=== PATIENT | female | born 1985 | race Caucasian/White ===

== ENCOUNTER 2017-11-10 16:03 | Emergency (ER) | payer OTHER ==
--- NOTE | 2017-11-10 16:11 | PDOC ---
Rapid Medical Evaluation Time Seen by Provider: 11/10/17 16:09 Medical Evaluation: Allergies Allergy/AdvReac Type Severity Reaction Status Date / Time No Known Allergies Allergy Verified 08/28/17 01:20 11/10/17 16:09 The patient presents with a chief complaint of: left sided chest pain radiating left neck, dull presently I have performed a brief in-person evaluation of this patient. Pertinent physical exam findings: VSS I have ordered the following: ekg done in triage The patient will proceed to the ED for further evaluation. Discharge Disposition - Diagnosis Chest pain - Referrals - Patient Instructions - Post Discharge Activity
[2017-11-10 16:12] VITALS: BMI 24.2
[2017-11-10 18:05] LABS: URINE APPEARANCE SLCLOUDY; URINE BILIRUBIN NEGATIVE (NEGATIVE); URINE BLOOD NEGATIVE (NEGATIVE); URINE COLOR LTYELLOW; URINE GLUCOSE (UA) NEGATIVE (NEGATIVE); URINE KETONE NEGATIVE (NEGATIVE); URINE LEUK ESTERASE TRACE (NEGATIVE); URINE NITRITE NEGATIVE (NEGATIVE); URINE PROTEIN NEGATIVE (NEGATIVE); URINE UROBILINOGEN NEGATIVE mg/dL (0.2-1.0)
[2017-11-10 18:07] LABS: URINE MUCUS RARE; URINE RBC <1 /hpf (0-3); URINE WBC 1 /hpf (3-5)
[2017-11-10 18:20] LABS: MEAN PLT VOLUME 8.3 fl (7.5-11.1); RDW 12.5 % (11.6-15.6); WHITE BLOOD COUNT 9.1 K/mm3 (4.0-10.0)
[2017-11-10 18:22] LABS: BASOPHIL 0.9 % (0-2.0); MCH 29.7 pg (25.7-33.7); MCHC 34.2 g/dl (32.0-36.0); MEAN CELL VOLUME 86.9 fl (80-96); PLATELET COUNT 315 K/MM3 (134-434)
--- NOTE | 2017-11-10 18:39 | PDOC ---
History of Present Illness - General Chief Complaint: Chest Pain Stated Complaint: CHEST PAIN Time Seen by Provider: 11/10/17 16:09 - History of Present Illness Initial Comments: 11/10/17 18:36 "The patient is a 32 year old female with a significant PMH of panic attacks who presents to the emergency department with 2 weeks of dull chest pain and 1 day of sharp chest pain. The patient reports feeling intermittent chest pain for the past 2 weeks which is bilateral and dull in nature. The pain was non- pleuritic and non-exertional. Pt attributed it to her anxiety. However, today she reports feeling a sudden onset of sharp right sided chest pain which radiated up to her ear. She reports that this sharp chest pain lasted about 3 seconds and resolved completely. Pt currently denies any symptoms whatsoever. Denies AGUAYO/N/V. Denies neck pain. Denies F/C. Denies leg swelling. Denies OCP use. Denies recent travel/immobilization. The patient denies shortness of breath, headache and dizziness. Denies fever, chills, nausea, vomit, diarrhea and constipation. Denies dysuria, frequency, urgency and hematuria. Allergies: NKA Past surgical history: None reported. Social history: Current everyday smoker (~5 cigs/day). No reported alcohol or drug use. PCP: None reported. " Past History - Past Medical History Allergies/Adverse Reactions: Allergies Allergy/AdvReac Type Severity Reaction Status Date / Time No Known Allergies Allergy Verified 11/10/17 16:09 Home Medications: Ambulatory Orders NK [No Known Home Medication] 11/10/17 COPD: No - Immunization History Immunization Up to Date: Yes - Suicide/Smoking/Psychosocial Hx Smoking History: Never smoked Have you smoked in the past 12 months: Yes Number of Cigarettes Smoked Daily: 5 Information on smoking cessation initiated: No Hx Alcohol Use: No Drug/Substance Use Hx: No Review of Systems - Review of Systems Comments:: 11/10/17 18:38 "GENERAL/CONSTITUTIONAL: No fever or chills. No weakness. HEAD, EYES, EARS, NOSE AND THROAT: No change in vision. No ear pain or discharge. No sore throat. CARDIOVASCULAR: (+) Intermittent dull chest pain. (+) Sharp chest pain. No shortness of breath. RESPIRATORY: No cough, wheezing, or hemoptysis. GASTROINTESTINAL: No nausea, vomiting, diarrhea or constipation. GENITOURINARY: No dysuria, frequency, or change in urination. MUSCULOSKELETAL: No joint or muscle swelling or pain. No neck or back pain. SKIN: No rash NEUROLOGIC: No headache, vertigo, loss of consciousness, or change in strength/ sensation. ENDOCRINE: No increased thirst. No abnormal weight change. HEMATOLOGIC/LYMPHATIC: No anemia, easy bleeding, or history of blood clots. ALLERGIC/IMMUNOLOGIC: No hives or skin allergy. " *Physical Exam - Vital Signs Last Vital Signs Temp Pulse Resp BP Pulse Ox 98.3 F 86 20 148/88 100 11/10/17 16:05 11/10/17 16:05 11/10/17 16:05 11/10/17 16:05 11/10/17 16:05 - Physical Exam Comments: 11/10/17 18:38 "GENERAL: Awake, alert, and fully oriented, in no acute distress HEAD: No signs of trauma EYES: PERRLA, EOMI, sclera anicteric, conjunctiva clear ENT: Auricles normal inspection, hearing grossly normal, nares patent, oropharynx clear without exudates. Moist mucosa NECK: Nontender, no stepoffs, Normal ROM, supple, no lymphadenopathy, JVD, or masses LUNGS: Breath sounds equal, clear to auscultation bilaterally. No wheezes, and no crackles HEART: Regular rate and rhythm, normal S1 and S2, no murmurs, rubs or gallops ABDOMEN: Soft, nontender, normoactive bowel sounds. No guarding, no rebound. No masses EXTREMITIES: Normal range of motion, no edema. No clubbing or cyanosis. No cords, erythema, or tenderness NEUROLOGICAL: Cranial nerves II through XII intact. 5/5 strength and sensation in all extremities, Normal speech, normal gait SKIN: Warm, Dry, normal turgor, no rashes or lesions noted. " Heart Score/ECG Review - History History: Slightly suspicious - Electrocardiogram EKG: Normal - Age Age: </= 45 - Risk Factors Risk Factors Heart Score: Yes Smoking History Based on the list above the patient has:: 1-2 risk factors - Troponin Troponin: </= normal limit - Score Heart Score - Total: 1 - ECG Impressions Comment:: 11/10/17 18:38 NSR, no LOC/STDs, no TWIs, axis wnl, intervals wnl ED Treatment Course - LABORATORY CBC & Chemistry Diagram: 11/10/17 18:10 11/10/17 18:10 - ADDITIONAL ORDERS Additional order review: Laboratory Results 11/10/17 18:00 Urine Color Ltyellow Urine Appearance Slcloudy Urine pH 7.0 Ur Specific [place] 1.009 Urine Protein Negative Urine Glucose (UA) Negative Urine Ketones Negative Urine Blood Negative Urine Nitrite Negative Urine Bilirubin Negative Urine Urobilinogen Negative Urine WBC (Auto) 1 Urine RBC (Auto) <1 Ur Epithelial Cells Rare Urine Mucus Rare Urine HCG, Qual Negative 11/10/17 18:10 RBC 4.83 MCV 86.9 MCHC 34.2 RDW 12.5 MPV 8.3 Neutrophils % 69.0 Lymphocytes % 19.4 D Monocytes % 7.7 Eosinophils % 3.0 Basophils % 0.9 - RADIOLOGY Radiology Studies Ordered: Category Date Time Status CHEST PA & LAT [RAD] Stat Radiology 11/10/17 17:42 Taken Medical Decision Making - Medical Decision Making 11/10/17 18:38 32 F with intermittent dull bilateral chest pain x 2 weeks with one episode of sharp shooting chest pain today lasting 3 seconds. Pain is very atypical in nature. EKG with no ischemic changes, making ACS unlikely. Pt has no PE risk factors, no s/s of DVT on exam, normal vitals. PERC score is 0. - Labs, trop - CXR 11/10/17 19:32 CXR clear. Pt signed out to oncoming attending, pending chemistries and troponin. *DC/Admit/Observation/Transfer Diagnosis at time of Disposition: Chest pain - Referrals Referrals: Yovany Robles MD [Staff Physician] - - Patient Instructions Printed Discharge Instructions: DI for Atypical Chest Pain Additional Instructions: Call the above number to make an appointment with a poultry farm laborer within 1 week. If you experience persistent or worsening chest pain, shortness of breath, or any other concerning symptoms, return to the ER immediately. - Post Discharge Activity
[2017-11-10 19:57] LABS: ALBUMIN 4.2 g/dl (3.4-5.0); ALK PHOS 65 U/L (45-117); ANION GAP 8 (8-16); BILIRUBIN,TOTAL 0.4 mg/dL (0.2-1.0); CALCIUM 8.7 mg/dL (8.5-10.1); CO2 26 mmol/L (21-32); CREATININE 0.6 mg/dL (0.55-1.02); GLUCOSE,RANDOM 61 mg/dL (74-106); SGOT/AST 6 U/L (15-37); SGPT/ALT 22 U/L (12-78); TOT PROT 7.6 g/dl (6.4-8.2)
[2017-11-10 19:58] LABS: CPK 91 IU/L (26-192); TROPONIN I < 0.02 ng/ml (0.00-0.05)
--- NOTE | 2017-11-10 20:01 | PDOC ---
*Physical Exam - Vital Signs Last Vital Signs Temp Pulse Resp BP Pulse Ox 98.3 F 86 20 148/88 100 11/10/17 16:05 11/10/17 16:05 11/10/17 16:05 11/10/17 16:05 11/10/17 16:05 ED Treatment Course - LABORATORY CBC & Chemistry Diagram: 11/10/17 18:10 11/10/17 18:10 - ADDITIONAL ORDERS Additional order review: Laboratory Results 11/10/17 11/10/17 11/10/17 18:10 18:10 18:00 Sodium 140 Potassium 4.1 Chloride 106 Carbon Dioxide 26 Anion Gap 8 BUN 15 Creatinine 0.6 Creat Clearance w eGFR > 60 Random Glucose 61 L D Calcium 8.7 Total Bilirubin 0.4 D AST 6 L ALT 22 D Alkaline Phosphatase 65 Creatine Kinase 91 Troponin I < 0.02 Total Protein 7.6 Albumin 4.2 Urine Color Ltyellow Urine Appearance Slcloudy Urine pH 7.0 Ur Specific [place] 1.009 Urine Protein Negative Urine Glucose (UA) Negative Urine Ketones Negative Urine Blood Negative Urine Nitrite Negative Urine Bilirubin Negative Urine Urobilinogen Negative Urine WBC (Auto) 1 Urine RBC (Auto) <1 Ur Epithelial Cells Rare Urine Mucus Rare Urine HCG, Qual Negative 11/10/17 18:10 RBC 4.83 MCV 86.9 MCHC 34.2 RDW 12.5 MPV 8.3 Neutrophils % 69.0 Lymphocytes % 19.4 D Monocytes % 7.7 Eosinophils % 3.0 Basophils % 0.9 *DC/Admit/Observation/Transfer Diagnosis at time of Disposition: Chest pain - Discharge Dispostion Disposition: HOME Condition at time of disposition: Stable Admit: No - Referrals Referrals: Yovany Robles MD [Staff Physician] - - Patient Instructions Printed Discharge Instructions: DI for Atypical Chest Pain Additional Instructions: Call the above number to make an appointment with a vending machine servicer within 1 week. If you experience persistent or worsening chest pain, shortness of breath, or any other concerning symptoms, return to the ER immediately. - Post Discharge Activity
[2017-11-10 20:08] VITALS: BP 148/78; PULSE 84; TEMP 98.6
[2017-11-10 20:42] LABS: URINE LEUK ESTERASE TRACE (NEGATIVE)
--- NOTE | 2017-11-11 11:33 | EKG ---
Test Reason : Blood Pressure : / mmHG Vent. Rate : 088 BPM Atrial Rate : 088 BPM P-R Int : 144 ms QRS Dur : 086 ms QT Int : 362 ms P-R-T Axes : 067 065 045 degrees QTc Int : 438 ms NORMAL SINUS RHYTHM WITH SINUS ARRHYTHMIA NONSPECIFIC ST AND T WAVE ABNORMALITY ABNORMAL ECG NO PREVIOUS ECGS AVAILABLE Confirmed by CAROLINE GIRON MD ([id number]) on 11/11/2017 11:33:33 AM Referred By: Confirmed By:CAROLINE GIRON MD
== END 2017-11-10 20:08 | disposition home or self-care (01) ==
LOC: JER 16:03
DX: R07.89 Other chest pain (principal); F41.0 Panic disorder [episodic paroxysmal anxiety]
CPT/HCPCS: 36415; 71020-TC; 80053; 81003; 81015; 82550; 84484; 84703; 85025; 93005; 93010; 99282-25

== ENCOUNTER 2021-08-15 12:28 | Emergency (ER) | payer SELFPAY ==
[2021-08-15 12:51] VITALS: PULSE 100; TEMP 99; BMI 25.2
[2021-08-15 13:55] VITALS: BP 140/80
== END 2021-08-15 13:55 | disposition home or self-care (01) ==
LOC: FER 12:28
DX: I10 Essential (primary) hypertension (principal)
CPT/HCPCS: 93005; 99283-25